=== PATIENT | female | born 1965 | race Caucasian/White ===

== ENCOUNTER 2023-03-05 10:03 | Emergency (ER) | payer BC, SELFPAY ==
--- NOTE | 2023-03-05 10:12 | PC.NURSE ---
Pt requested staff to wear a mask in her room
[2023-03-05 10:18] VITALS: BP 133/74; PULSE 100; RESP 20; TEMP 36.8; O2SAT 98; BMI 32.9
--- NOTE | 2023-03-05 10:23 | CA_ITS ---
FINAL REPORT TECHNIQUE: Ultrasound images of the deep venous system were obtained from the left groin to the calf veins. CLINICAL HISTORY: EDEMA,PAIN PROXIMAL LEFT CALF, NKI, RECENT DVT IN THE RLE PT ON ELIQUS FINDINGS: The deep venous system is normally compressible. Normal flow is identified. There is a 7.7 x 5.4 cm heterogeneous area in the posterior calf favored to represent hematoma. IMPRESSION: No evidence of left lower extremity DVT. Heterogeneous area in the posterior calf favored to represent hematoma. Reviewed, Interpreted and Dictated by Lawrence Garcia III, MD Transcribed by Erika Galvez Authenticated and [facility]
--- NOTE | 2023-03-05 10:40 | HMH.EDGENADL ---
Discharge Plan Disposition Patient Disposition: Home, Self-Care Condition: Good Prescriptions Prescriptions: New sulfamethoxazole-trimethoprim [Bactrim DS] 800-160 mg tablet 1 tab PO BID 10 Days Qty: 20 0RF Referrals Follow up/Referrals: Shanika Escalante APRN [Primary Care Provider] - See instructions Activity Restrictions/Add. Instructions Additional Instructions/Restrictions: You were evaluated in the emergency department today. At this time, we feel that you have a hematoma of your lower leg. Please rest your leg, ice it, keep it elevated to reduce swelling, and apply compressive wrap. Follow-up with your primary care provider over the next 48 hours who has prescribed you your blood thinner to let them know that this is happened. Return to the emergency department for new or worsening symptoms. Monitor for any signs of infection, such as fevers, increase in pain, systemic symptoms such as nausea, or red streaking up the leg. Return to the ED if these develop. Clinical Impressions Clinical Impression: Hematoma of left lower leg Instructions Patient Instructions: DI for Hematoma (Bruise) Discharge ED Provider: Debora Lynn General Adult HPI General Chief complaint: PAIN Stated complaint: Poos. blood clot in left leg Time Seen by Provider: 03/05/23 10:16 Mode of Arrival: Ambulatory Source of Information: Patient Limitations: No Limitations Description of Symptoms (Recalled from ER Triage Doc. by RN): pt to ed c/o pain and heat to left calf. pt states she is currently being treated for dvt on her right calf and is taking eliquis daily. History of Present Illness HPI narrative: This patient is a 57-year-old female with a history of melanoma status post resection as well as DVT of the right lower extremity on Eliquis presenting to the emergency department for evaluation with concern for left calf pain and swelling. Patient states that this started a couple of days ago. She states that she had the DVT in her right lower extremity in the middle of October, and she has been on Eliquis 5 mg twice daily since then. She denies any known trauma to her left leg. She also denies any fevers, chills, or other infectious symptoms. She notes swelling, tenderness, and skin color changes that are similar to her right leg DVT, which she notes has improved in her right leg. She reports compliance with her Eliquis and denies any other concerns at this time. She denies any chest pain or shortness of breath. Related Data Previous Rx's Medication Instructions Recorded sulfamethoxazole 800 1 tab PO BID 10 days #20 tabs 03/05/23 mg-trimethoprim 160 mg tablet (Bactrim DS) Allergies Allergy/AdvReac Type Severity Reaction Status Date / Time amoxicillin Allergy Verified 03/05/23 11:26 Penicillins Allergy Verified 03/05/23 11:26 [facility] Disclaimer: The information contained in this section may have been updated after the patient was seen, as this information can be updated by other users. Social History Smoking Status: Never smoker alcohol intake: never current occupational status: employed Travel in the last 8 weeks: None ROS Obtained: Yes All systems reviewed & no additional complaints except as documented Physical Exam General General appearance: alert and in no apparent distress Head Head exam: atraumatic and normocephalic Eye Eye exam: Present normal appearance, PERRL and EOMI ENT ENT exam: Present normal exam, normal oropharynx, mucous membranes moist and normal external ear exam Neck Neck exam: Present normal inspection, full ROM and trachea midline; Absent tenderness Chest Chest inspection: Present normal inspection and symmetric chest wall rise; Absent tenderness Respiratory Respiratory exam: Present normal lung sounds bilaterally; Absent respiratory distress, wheezes, stridor or accessory muscle use Cardiovascular Cardiovascular
[2023-03-05 11:00] VITALS: BP 118/65; PULSE 90; O2SAT 95
[2023-03-05 11:30] VITALS: BP 110/74; PULSE 89; O2SAT 95
[2023-03-05 12:14] LABS: Basophils % 0.3 % (0.1-2.0); Chloride 106 mmol/L (98-107); Eosinophils # 0.1 K/mm3 (0.0-0.4); Eosinophils % 0.6 % (0.1-12.0); Hematocrit 37.7 % (37.0-47.0); Hemoglobin 12.5 g/dL (12.2-16.2); Lymphocytes # 1.4 K/mm3 (0.7-4.5); Lymphocytes % 8.6 % (10-50); Mean Corpuscular HGB Conc 33.2 g/dL (31.8-35.4); Mean Corpuscular Hemoglobin 31.5 pg (27.0-31.2); Mean Corpuscular Volume 94.9 fl (81-99); Mean Platelet Volume 7.4 fl (7.4-10.4); Monocytes # 0.5 K/mm3 (0.1-1.0); Monocytes % 3.2 % (1.7-9.3); Neutrophils # 13.7 K/mm3 (1.8-7.8); Neutrophils % 87.3 % (37.0-80.0); Platelet Count 409 K/mm3 (142-424); Red Blood Count 3.97 M/mm3 (4.20-5.40); Red Cell Distribution Width 14.8 % (11.5-17.5); Sodium 137 mmol/L (136-145); White Blood Count 15.7 K/mm3 (4.8-10.8)
[2023-03-05 12:15] LABS: Potassium 4.2 mmoL/L (3.5-5.1)
[2023-03-05 12:17] LABS: Alanine Aminotransferase 35 U/L (12-78); Albumin Level 3.9 g/dl (3.5-5.0); Albumin/Globulin Ratio 1.5 (1.1-1.8); Alkaline Phosphatase 57 U/L (38-126); Anion Gap 11.2 mEq/L (5-15); Aspartate Amino Transferase 31 U/L (14-36); Bilirubin,Total 0.3 mg/dl (0.2-1.3); Blood Urea Nitrogen 16 mg/dl (7-17); Carbon Dioxide 24 mmol/L (22.0-30.0); Creatinine Clearance Estimated 113 mL/min (50-200); Estimated Glomerular Filt Rate 74 ml/min (>60); GFR (African American) 90 ML/MIN (>60); Globulin 2.6 g/dL (1.3-3.2); Total Protein,Serum 6.5 g/dl (6.3-8.2)
[2023-03-05 12:18] LABS: Calcium 8.4 mg/dl (8.4-10.2); Glucose 109 mg/dl (74-100)
[2023-03-05 12:20] LABS: MANUAL DIFFERENTIAL MANUAL DIFFERENTIAL (MANUAL DIFF)
[2023-03-05 12:21] LABS: Activated Partial Thrombo Time 28.5 seconds (22.8-30.6); INR 1.01 (0.9-1.1); Prothrombin Time 10.9 seconds (10.1-12.5)
--- NOTE | 2023-03-05 12:46 | CT_ITS ---
FINAL REPORT TECHNIQUE: Thin section axial CT images with coronal and sagittal reformats were performed after the administration of IV contrast. This study was performed with techniques to keep radiation doses as low as reasonably achievable (ALARA). Individualized dose reduction techniques using automated exposure control or adjustment of mA and/or kV according to the patient's size were employed. CLINICAL HISTORY: swelling, hematoma vs abscess COMPARISON: None FINDINGS: There is no fracture. There is a small popliteal cyst. There is a heterogeneous fluid collection adjacent to the medial head of the gastrocnemius measuring 12 x 5 x 3 cm. The appearance is most consistent with a hematoma. Infected hematoma is not excluded. There is medial subcutaneous venous varicosity. IMPRESSION: Fluid collection consistent with hematoma adjacent to the medial head of the gastrocnemius. Infected hematoma not excluded. Reviewed, Interpreted and Dictated by Lawrence Garcia III, MD Transcribed by Brittni Weber Authenticated and [facility]
[2023-03-05 12:57] LABS: Lymphocytes % 8 % (10-50); Monocytes % 4 % (2-9); Neutrophils % 87 % (42-76); Total Cells Counted 100
[2023-03-05 12:58] LABS: Macrocytosis 1+; Platelet Estimate Normal
[2023-03-05 12:59] LABS: RBC Morphology Normal
[2023-03-05 15:09] VITALS: BP 132/67; PULSE 87; RESP 20; TEMP 36.8; O2SAT 97
== END 2023-03-05 15:13 | disposition home or self-care (01) ==
PROVIDERS: Emergency Provider Emergency Medicine; PCP Nurse Practitioner
DX: M79.662 Pain in left lower leg (principal); R22.42 Localized swelling, mass and lump, left lower limb; S80.12XA Contusion of left lower leg, initial encounter; Z86.718 Personal history of other venous thrombosis and embolism; Z79.01 Long term (current) use of anticoagulants; X58.XXXA Exposure to other specified factors, initial encounter
CPT/HCPCS: 73701; 80053; 85007; 85025; 85610; 85730; 93971; 99285; Q9967

== ENCOUNTER 2023-09-25 09:19 | Outpatient (CLI) | payer BC, SELFPAY ==
--- NOTE | 2023-09-25 | CA_ITS ---
FINAL REPORT TECHNIQUE: Compression escamilla scale and Doppler evaluation CLINICAL HISTORY: DVT RLE 01/22, Pt on Eliquis dec - may edema since Sept Melanoma IV on Right great toe and Groin Lymph node removed Sept 24. COMPARISON: None FINDINGS: Femoral and popliteal veins show normal compressibility and flow. Visualized portion of the calf veins are patent by Doppler exam. There is soft tissue swelling in the right calf. Note is made of a hypoechoic focus in the right popliteal fossa measuring up to 1.9 cm in diameter, consistent in appearance with a Sharma's cyst. IMPRESSION: No evidence of right lower extremity deep venous thrombosis Right popliteal Sharma's cyst as described. Reviewed, Interpreted and Dictated by King Perez MD Transcribed by Carine Neal Authenticated and [facility][1]
== END 2023-09-25 23:59 | disposition home or self-care (01) ==
LOC: RT 09:20
PROVIDERS: PCP Nurse Practitioner; Visit Provider Internal Medicine Hematology & Oncology
DX: R60.0 Localized edema (principal)
CPT/HCPCS: 93971